=== PATIENT | female | born 2000 | race Caucasian/White ===

== ENCOUNTER 2024-10-01 11:12 | Inpatient (IN) ==
[2024-10-01] MEDS ORDERED: OXYTOCIN 30 UNITS/NSS 30 UNITS/500 ML BAG IV PRN (13:52)
[2024-10-01] MEDS ORDERED: LIDOCAINE 1% LOCAL 20 ML VIAL INFIL PRN (13:52)
--- NOTE | 2024-10-01 13:58 | History & Physical Report ---
Date of Service October 01, 2024 Assessment & Plan (1) Encounter for supervision of normal intrauterine in primigravida, antepartum: Plan: Melissa is a 23-year-old G1, P0 currently at 39 weeks 2 days gestational age presents in early labor 1. Fetus: Category 1 tracing 2. Labor: Progressing spontaneously. Will rupture following epidural. Will augment as indicated 3. GBS negative 4. Vitals within normal limit (2) Normal labor: History of Present Illness Primary Care Provider: Calvin Lopez DO Melissa is a 23-year-old G1, P0 currently at 39 weeks 2 days gestational age presents in early labor. complications: Suspected VSD - echo-[facility] – [place]- 05/28/24 - to have non urgent echo post delivery OB Labs: Blood Type O Positive 02/29/24 Antibody Screen NEGATIVE 02/29/24 Hgb 13.0 g/dl (12.0-16.0) 07/17/24 Hct 38.4 % (37.0-47.0) 07/17/24 MCV 83.9 fL (80.0-100.0) 02/29/24 Plt Count 231 K/uL (130-400) 02/29/24 Rubella IgG Antibody Immune (Immune) 02/29/24 RPR Nonreactive (Nonreactive) 02/29/24 Treponema pallidum Ab Negative (Negative) 07/17/24 Hep Bs Antigen NON-REACTIVE (NON-REACTIVE) 02/29/24 Hepatitis C Ab (EIA) NON-REACTIVE (NON-REACTIVE) 02/29/24 HIV (1&2) Ag & Ab Conf NON-REACTIVE (NON-REACTIVE) 02/29/24 Glucose 1 Hr 50 gm 158 mg/dl (70-130) H 04/24/24 Maternal Serum AFP 34.0 ng/mL 04/24/24 OB Optional Labs: Chlamydia trachomatis RNA Not Detected (NotDetected) 02/29/24 Neisseria gonorrhoeae RNA Not Detected (NotDetected) 02/29/24 Thyroid Stimulating Hormone (TSH) 2.562 uIu/ml (0.300-4.500) 02/10/22 Alpha Fetoprotein Triple Screen SEE NOTE 04/24/24 Labs Reviewed: cf/sma-negative--mln cfdna-low risk--mln afp neg--akh passed 16 week 2 hr gtt--akh Allergies Allergy/AdvReac Type Severity Reaction Status Date / Time ibuprofen [From Motrin] Allergy Unknown Swelling Verified 09/30/24 03:16 of the Eye naproxen Allergy Unknown Swelling Verified 09/30/24 03:16 of the Eye Home Medications Medication Instructions Recorded Confirmed Type [id number] fum-folic ac-om3 1 tab PO DAILY 02/05/24 10/01/24 History [One Daily ] famotidine 40 mg tablet (Pepcid) 40 mg PO DAILY #90 tabs 02/07/24 10/01/24 Rx Patient History Medical History (Updated 10/01/24 @ 13:57 by Gume Rosen MD) Normal labor Varicella vaccination 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 Cellulitis of left breast Tachycardia Sinusitis Lightheadedness Lumbar pain Surgical History History of lumpectomy of left breast Family History Grandfather (Maternal) Pancreatic cancer Grandmother (Paternal) Diabetes Dyslipidemia Grandfather (Paternal) Diabetes Dyslipidemia Mother Hypertension Father Hypertension Denies family history of Ovarian cancer Myocardial infarction Breast cancer Colorectal cancer Social History Smoking Status: Never smoker Second Hand Exposure: No; Do You Dip or Chew Tobacco: No; Tobacco Cessation Education Requested by Patient: No Hx Alcohol Use: No Hx Substance Use: No Preferred Language: Greek Communication Ability: Effective Addictions Therapist Required: No Beliefs That Will Affect Care: None marital status: marital status details: Martell Pettit (31) [phone] Current Living Situation: Spouse Current Living Situation Comment: - Martell current occupational status: employed 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 Other Information That Helps Us Care for You: No Feels Safe at Home: Yes Safety Concerns: Feels Safe At This Time Assistive Devices: None Physical Exam Genitourinary: OB Exam Monitor Tracing: + external FHT monitor used, + external uterine monitor used, + category I and + normal FHT variability Progressed from 2/80/-2 to 3/80/-2 Results & Data Vital Signs (Past 12 Hours) Vital Signs Temp Pulse Resp BP 10/01/24 11:20 36.6 C 101 H 20 137/94 10/01/24 11:16 101 H 137/94 Coding Level of Care Code None Diagnoses Encounter for supervision of normal intrauterine in primigravida, antepartum Z34.00 Normal labor O80; Z37.9
[2024-10-01 14:32] LABS: Hematocrit (blood only) 40.4 % (37.0-47.0); Mean Corpuscular Hemoglobin 29.7 pg (25.0-34.0); Mean Corpuscular Hgb Conc 34.7 g/dL (32.0-36.0); Mean Corpuscular Volume 85.8 fL (80.0-100.0); Mean Platelet Volume 11.4 fL (9.4-12.4); Platelet Count 176 K/uL (130-400); RDW Coefficient of Variation 13.4 % (11.5-14.5); RDW Standard Deviation 41.4 fL (36.4-46.3); Red Blood Count 4.71 M/uL (4.20-5.40); White Blood Count 11.23 K/ul (4.8-10.8)
[2024-10-01] MEDS: SODIUM CHLORIDE 0.9% 1,000 ML IV SCH (14:42)
--- NOTE | 2024-10-01 15:12 | Anesthesiology Consultation ---
Date of Service October 01, 2024 Assessment & Plan Chart Review Chart Review: Acceptable Risk for Surgery and Patient NOT seen in Pre Admission Testing Consults Requested none History Height/Weight Height: 5 ft 7 in Weight: 94.801 kg Allergies Allergy/AdvReac Type Severity Reaction Status Date / Time ibuprofen [From Motrin] Allergy Unknown Swelling Verified 09/30/24 03:16 of the Eye naproxen Allergy Unknown Swelling Verified 09/30/24 03:16 of the Eye Medications Home Medications Medication Instructions Recorded Confirmed Last Taken [id number] fum-folic ac-om3 1 tab PO DAILY 02/05/24 10/01/24 10/01/24 08:00 [One Daily ] famotidine 40 mg tablet (Pepcid) 40 mg PO DAILY #90 tabs 02/07/24 10/01/24 10/01/24 08:00 Active Medications Generic Name Dose Route Start Last Admin Trade Name Freq PRN Reason Stop Dose Admin Sodium Chloride 1,000 mls @ 80 mls/hr 10/01/24 14:30 10/01/24 14:42 Nss IV 10/02/24 14:29 999 mls/hr .[id number] JULIAN Administration Past Medical History Medical History (Updated 10/01/24 @ 13:57 by Gume Rosen MD) Normal labor Varicella vaccination 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 Cellulitis of left breast Tachycardia Sinusitis Lightheadedness Lumbar pain Past Family History Family History Grandfather (Maternal) Pancreatic cancer Grandmother (Paternal) Diabetes Dyslipidemia Grandfather (Paternal) Diabetes Dyslipidemia Mother Hypertension Father Hypertension Denies family history of Ovarian cancer Myocardial infarction Breast cancer Colorectal cancer Past Surgical History Surgical History History of lumpectomy of left breast Social History Smoking Status: Never smoker Do You Dip or Chew Tobacco: No Hx Alcohol Use: No Hx Substance Use: No Physical Exam Vital Signs Last Vital Signs Temp 36.6 C 10/01/24 11:20 Pulse 91 H 10/01/24 15:08 Resp 20 10/01/24 11:20 BP 133/90 10/01/24 14:02 Pulse Ox 98 10/01/24 15:08 Testing Laboratory Results 10/01/24 14:16
[2024-10-01] MEDS ORDERED: BUPIVACAINE 0.25% PF 30 ML VIAL EPI PRN (15:13)
[2024-10-01] MEDS ORDERED: LIDOCAINE 2% MPF LOCAL 5 ML VIAL EPI PRN (15:13)
[2024-10-01] MEDS ORDERED: ePHEDrine sulfate 50 MG/ML AMP IV PRN (15:13)
[2024-10-01] MEDS ORDERED: fentaNYL citrate PF 100 MCG/2 ML VIAL EPI PRN (15:13)
[2024-10-01] MEDS ORDERED: SODIUM CHLORIDE 0.9% PF INJ 10 ML VIAL EPI PRN (15:13)
[2024-10-01] MEDS ORDERED: NALBUPHINE HCL INJ 10 MG/ML AMP IV PRN (15:13)
[2024-10-01] MEDS ORDERED: ROPIVACAINE 0.5% PF 5 MG/ML 20 ML VIAL EPI PRN (15:13)
[2024-10-01] MEDS ORDERED: NALOXONE HCL 1 MG in SODIUM CHLORIDE 0.9% 1,000 ML IV PRN (15:13)
[2024-10-01] MEDS ORDERED: diphenhydrAMINE 50 MG/ML VIAL IV PRN (15:13)
[2024-10-01] MEDS ORDERED: NALOXONE HCL 0.4 MG/1 ML VIAL/CARP IV PRN (15:13)
[2024-10-01] MEDS: LIDOCAINE 2%/EPINEPHRINE 1:200,000 20 ML PF ONE (15:30)
[2024-10-01] MEDS: fentANYL 2 MCG/ML BUPIVacaine 0.125%-NSS 100ML BAG ONE (15:30)
[2024-10-01] MEDS: BUPIVACAINE 0.25% PF 30 ML VIAL EPI STA (17:17)
[2024-10-01] MEDS: SODIUM CHLORIDE 0.9% PF INJ 10 ML VIAL EPI STA (17:18)
[2024-10-01] MEDS: fentaNYL citrate PF 100 MCG/2 ML VIAL EPI STA (17:18)
[2024-10-01] MEDS: fentaNYL citrate PF 100 MCG/2 ML VIAL ONE (20:05)
[2024-10-01] MEDS: ePHEDrine sulfate 50 MG/ML AMP ONE (20:05)
[2024-10-01] MEDS: LIDOCAINE 2%/EPINEPHRINE 1:200,000 20 ML PF EPI STA (20:05)
[2024-10-01] MEDS: BUPIVACAINE 0.25% PF 30 ML VIAL ONE (20:05)
[2024-10-01] MEDS: SODIUM CHLORIDE 0.9% PF INJ 10 ML VIAL ONE (20:05)
[2024-10-01] MEDS: OXYTOCIN 30 UNITS/NSS 30 UNITS/500 ML BAG IV PRN (20:23)
--- NOTE | 2024-10-01 21:35 | Labor Progress Brief Note ---
Date of Service October 01, 2024 Subjective Reason For Note: Routine Evaluation Assessment & Plan (1) Encounter for supervision of normal intrauterine in primigravida, antepartum: Plan: Melissa is a 23-year-old G1, P0 currently at 39 weeks 2 days gestational age presents in early labor 1. Fetus: Category 1 tracing 2. Labor: Progressing spontaneously. Will rupture following epidural. Oxytocin started as contractions have significantly spaced out 3. GBS negative 4. Vitals within normal limit (2) Normal labor: Admission and Anticipated Discharge Date Admission Date: October 01, 2024 Physical Exam Genitourinary: Manual OB Exam: + cervical dilation 6 cm, + cervical effacement 80%, + station -1 and + amniotic fluid clear OB Exam Monitor Tracing: + external FHT monitor used, + external uterine monitor used, + category I and + normal FHT variability Results & Data Vital Signs (Past 12 Hours) Vital Signs Temp Pulse Resp BP Pulse Ox 10/01/24 21:33 99 10/01/24 21:33 75 10/01/24 21:28 99 10/01/24 21:28 73 10/01/24 21:26 83 10/01/24 21:26 105/66 10/01/24 21:23 99 10/01/24 21:23 76 10/01/24 21:18 99 10/01/24 21:18 74 10/01/24 21:13 99 10/01/24 21:13 82 10/01/24 21:11 69 10/01/24 21:11 101/59 L 10/01/24 21:08 98 10/01/24 21:08 74 10/01/24 21:03 99 10/01/24 21:03 70 10/01/24 21:00 18 10/01/24 21:00 37.0 C 18 10/01/24 20:58 98 10/01/24 20:58 100 H 10/01/24 20:57 83 10/01/24 20:57 117/75 10/01/24 20:53 98 10/01/24 20:53 90 10/01/24 20:48 99 10/01/24 20:48 89 10/01/24 20:43 98 10/01/24 20:43 88 10/01/24 20:41 81 10/01/24 20:41 118/82 10/01/24 20:38 98 10/01/24 20:38 84 10/01/24 20:33 98 10/01/24 20:33 85 10/01/24 20:28 98 10/01/24 20:28 82 10/01/24 20:26 78 10/01/24 20:26 115/88 10/01/24 20:23 98 10/01/24 20:23 85 10/01/24 20:18 97 10/01/24 20:18 83 10/01/24 20:13 97 10/01/24 20:13 83 10/01/24 20:11 78 10/01/24 20:11 119/77 10/01/24 20:08 98 10/01/24 20:08 96 H 10/01/24 20:03 99 10/01/24 20:03 89 10/01/24 19:58 98 10/01/24 19:58 96 H 10/01/24 19:58 119/83 10/01/24 19:53 98 10/01/24 19:53 83 10/01/24 19:48 97 10/01/24 19:48 87 10/01/24 19:43 98 10/01/24 19:43 85 10/01/24 19:42 88 10/01/24 19:42 130/81 10/01/24 19:38 99 10/01/24 19:38 82 10/01/24 19:33 99 10/01/24 19:33 82 10/01/24 19:28 99 10/01/24 19:28 88 10/01/24 19:26 83 10/01/24 19:26 104/70 10/01/24 19:23 99 10/01/24 19:23 90 10/01/24 19:18 98 10/01/24 19:18 89 10/01/24 19:13 99 10/01/24 19:13 68 10/01/24 19:13 104/66 10/01/24 19:10 36.6 C 18 10/01/24 19:10 18 10/01/24 19:10 36.6 C 18 10/01/24 19:08 99 10/01/24 19:08 82 10/01/24 19:03 98 10/01/24 19:03 85 10/01/24 19:00 16 12/10/24 19:00 16 10/01/24 18:58 99 10/01/24 18:58 111 H 10/01/24 18:56 90 10/01/24 18:56 129/81 10/01/24 18:53 98 10/01/24 18:53 96 H 10/01/24 18:48 98 10/01/24 18:48 83 10/01/24 18:43 99 10/01/24 18:43 98 H 10/01/24 18:42 78 10/01/24 18:42 121/78 10/01/24 18:38 99 10/01/24 18:38 91 H 10/01/24 18:33 99 10/01/24 18:33 96 H 10/01/24 18:30 16 10/01/24 18:30 16 10/01/24 18:28 99 10/01/24 18:28 89 10/01/24 18:26 80 10/01/24 18:26 123/81 10/01/24 18:23 99 10/01/24 18:23 89 10/01/24 18:18 99 10/01/24 18:18 91 H 10/01/24 18:13 99 10/01/24 18:13 81 10/01/24 18:12 74 10/01/24 18:12 120/77 10/01/24 18:08 99 10/01/24 18:08 74 10/01/24 18:03 99 10/01/24 18:03 86 10/01/24 18:00 16 10/01/24 18:00 36.9 C 16 10/01/24 17:58 100 10/01/24 17:58 70 10/01/24 17:56 64 10/01/24 17:56 110/70 10/01/24 17:53 100 10/01/24 17:53 82 10/01/24 17:48 99 10/01/24 17:48 57 L 10/01/24 17:43 99 10/01/24 17:43 72 10/01/24 17:41 74 10/01/24 17:41 100/62 10/01/24 17:38 99 10/01/24 17:38 58 L 10/01/24 17:33 98 10/01/24 17:33 82 10/01/24 17:30 16 10/01/24 17:30 16 10/01/24 17:28 99 10/01/24 17:28 65 10/01/24 17:26 63 10/01/24 17:26 106/64 10/01/24 17:23 99 10/01/24 17:23 65 10/01/24 17:18 98 10/01/24 17:18 53 L 10/01/24 17:13 99 10/01/24 17:13 71 10/01/24 17:11 59 L 10/01/24 17:11 98/57 L 10/01/24 17:08 99 10/01/24 17:08 73 10/01/24 17:03 99 10/01/24 17:03 56 L 10/01/24 17:00 18 10/01/24 17:00 18 10/01/24 16:58 99 10/01/24 16:58 62 10/01/24 16:57 56 L 10/01/24 16:57 109/57 L 10/01/24 16:53 99 10/01/24 16:53 88 10/01/24 16:48 99 10/01/24 16:48 68 10/01/24 16:43 98 10/01/24 16:43 71 10/01/24 16:41 66 10/01/24 16:41 105/67 10/01/24 16:38 97 10/01/24 16:38 76 10/01/24 16:34 93 10/01/24 16:34 62 10/01/24 16:33 100 10/01/24 16:33 75 10/01/24 16:28 98 10/01/24 16:28 77 10/01/24 16:26 76 10/01/24 16:26 106/66 10/01/24 16:23 99 10/01/24 16:23 84 10/01/24 16:18 99 10/01/24 16:18 85 10/01/24 16:13 98 10/01/24 16:13 88 10/01/24 16:11 75 10/01/24 16:11 113/70 10/01/24 16:08 99 10/01/24 16:08 73 10/01/24 16:05 16 10/01/24 16:05 37.1 C 16 10/01/24 16:03 99 10/01/24 16:03 80 10/01/24 16:00 16 10/01/24 16:00 16 10/01/24 15:58 99 10/01/24 15:58 73 10/01/24 15:57 71 10/01/24 15:57 115/70 10/01/24 15:53 99 10/01/24 15:53 74 10/01/24 15:48 98 10/01/24 15:48 81 10/01/24 15:43 99 10/01/24 15:43 70 10/01/24 15:38 80 10/01/24 15:38 122/75 10/01/24 15:38 99 10/01/24 15:38 79 10/01/24 15:36 16 10/01/24 15:36 16 10/01/24 15:36 86 10/01/24 15:36 125/73 10/01/24 15:34 93 H 10/01/24 15:34 134/82 10/01/24 15:33 98 10/01/24 15:33 99 H 10/01/24 15:32 16 10/01/24 15:32 16 10/01/24 15:32 110 H 10/01/24 15:32 131/78 10/01/24 15:30 90 10/01/24 15:30 119/74 10/01/24 15:28 16 10/01/24 15:28 16 10/01/24 15:28 99 10/01/24 15:28 90 10/01/24 15:28 129/86 10/01/24 15:26 139/95 10/01/24 15:24 96 H 10/01/24 15:24 139/100 10/01/24 15:23 98 10/01/24 15:23 90 10/01/24 15:18 99 10/01/24 15:18 89 10/01/24 15:13 98 10/01/24 15:13 103 H 10/01/24 15:08 98 10/01/24 15:08 91 H 10/01/24 15:03 99 10/01/24 15:03 90 10/01/24 14:58 99 10/01/24 14:58 83 10/01/24 14:53 99 10/01/24 14:53 94 H 10/01/24 14:48 99 10/01/24 14:48 89 10/01/24 14:43 99 10/01/24 14:43 88 10/01/24 14:38 99 10/01/24 14:38 90 10/01/24 14:33 99 10/01/24 14:33 87 10/01/24 14:02 74 10/01/24 14:02 133/90 10/01/24 11:20 36.6 C 101 H 20 137/94 10/01/24 11:16 101 H 137/94 Coding Level of Care Code None Diagnoses Encounter for supervision of normal intrauterine in primigravida, antepartum Z34.00 Normal labor O80; Z37.9
[2024-10-01] MEDS: fentANYL 2 MCG/ML BUPIVacaine 0.125%-NSS 100ML BAG EPI PRN (23:41)
[2024-10-02] MEDS ORDERED: OXYTOCIN 30 UNITS/NSS 30 UNITS/500 ML BAG IV PRN (01:29)
[2024-10-02] MEDS ORDERED: bisacodyL 10 MG SUPP PR PRN (01:29)
[2024-10-02] MEDS ORDERED: IBUPROFEN 600 MG TAB PO PRN (01:29)
[2024-10-02] MEDS ORDERED: HYDROCORTISONE ACETATE 25 MG SUPP PR PRN (01:29)
--- NOTE | 2024-10-02 01:30 | Delivery Summary ---
Vaginal Delivery Summary Date of Service October 02, 2024 Vaginal Delivery Summary and 2nd Degree LAC Progressed to 10 cm dilated, 100% effaced, +2/3 station pushed over intact perineum with epidural anesthesia and delivered a viable female with weight pending and Apgars of 8 and 9 at 1 and 5 minutes respectively. Head and delivered without difficulty quickly followed by shoulders and body. was noted to be vigorous upon delivery and a 1 minute delayed cord clamping was initiated. Cord was then double clamped and cut remained on maternal abdomen. Cord blood obtained and attention was turned to delivery of the placenta which delivered intact with three-vessel cord gentle cord traction. On inspection of perineum vagina and cervix there is noted be a second-degree perineal laceration which was repaired with 3-0 Vicryl traditional crown stitch. Needle sponge and instrument counts correct at the completion of the case. Both mother and stable in the immediate post delivery timeframe. No complications noted and blood loss per QBL. [facility] Vaginal Delivery Charge Delivery Type Details: and 2nd Degree LAC
[2024-10-02] MEDS: DIPHTHER/TETAN/PERTUS Vaccine (Tdap, Adol/Adult) 0.5mL IM ONE (02:15)
[2024-10-02] MEDS: BENZOCAINE 20% SPRY 85 APPLN/85 GM CAN EXT PRN (02:57)
[2024-10-02] MEDS: ACETAMINOPHEN 325 MG TAB PO PRN (02:57)
--- NOTE | 2024-10-02 03:05 | Anesthesia Procedure Note ---
Date of Service October 02, 2024 Anesthesia Post Epidural Note Vital Signs Vital Signs: Temp Pulse Resp BP Pulse Ox 36.7 C 98 H 18 129/68 97 10/02/24 02:25 10/02/24 02:56 10/02/24 02:25 10/02/24 02:56 10/02/24 01:58 Notes Mental Status: alert / awake / arousable and participated in evaluation Nausea / Vomiting: adequately controlled Pain: adequately controlled Airway Patency, RR, SpO2: stable & adequate BP & HR: stable & adequate Hydration State: stable & adequate Neuraxial Anesthesia: was administered and sensory block is resolving Anesthetic Complications: no major complications apparent and Pt Satisfied with anesthetic care Epidural: Removed without complications and With tip intact
[2024-10-02] MEDS ORDERED: Nursing to Pharmacy Communication SCH (08:30)
[2024-10-02] MEDS: DOCUSATE SODIUM 100 MG CAP PO SCH (08:59)
[2024-10-02] MEDS: PRENATAL VITAMIN 1 TAB PO SCH (08:59)
[2024-10-02] MEDS: FERROUS SULFATE 325 MG TAB PO SCH (08:59)
--- NOTE | 2024-10-03 06:50 | Obstetrical Progress Note ---
Date of Service October 03, 2024 Assessment & Plan (1) Encounter for assessment: Plan Plan d/c later today. Meeting goals. Instructions given. f/u in 6 weeks. Day #:: 2 Subjective Ambulation: ambulating normally Voiding: no voiding problems Passing Gas:: Yes Diet Tolerance:: regular diet Lochia:: Small Feeding Type:: breast feeding Feels well. Ready for d/c. Physical Exam Constitutional WD/WN, vitals as above Cardiovascular Extremities: + edema (tr); no calf tenderness Gastrointestinal (Abdomen) soft, nt, nd, ff/nt 1 below u Psychiatric A+Ox3, euthymic affect Results & Data Vital Signs (Past 12 Hours) Vital Signs Temp Pulse Resp BP Pulse Ox O2 Del Method 10/02/24 23:00 36.4 C L 81 16 119/81 97 Room Air 10/02/24 19:20 36.6 C 91 H 16 128/83 97 Room Air
[2024-10-03] MEDS ORDERED: bisacodyL 5 MG TABEC PO SCH (20:00)
[2024-10-03 20:18] VITALS: RESP 16
--- NOTE | 2024-10-04 06:56 | Obstetrical Progress Note ---
Date of Service October 04, 2024 Assessment & Plan (1) Encounter for assessment: Patient doing well. Minimal bleeding, no extremity pain she has no calf tenderness she is tolerating a regular diet she is voiding well she has no depression Instructions are reviewed and when to call she is advised to call the office for a follow-up appointment and sooner if she is having a problem Subjective Ambulation: ambulating normally Voiding: no voiding problems Passing Gas:: Yes Diet Tolerance:: regular diet Lochia:: Small Physical Exam Constitutional WD/WN, vitals as above well developed and well nourished Respiratory normal respiratory effort, lungs clear to auscultation normal respiratory effort Cardiovascular RRR, no murmur, no edema Gastrointestinal (Abdomen) normal bowel sounds, soft, nontender, no hepatosplenomegaly Results & Data Vital Signs (Past 12 Hours) Vital Signs Temp Pulse Resp BP Pulse Ox O2 Del Method 10/03/24 23:50 97.3 F L 82 16 126/85 97 Room Air 10/03/24 19:00 97.5 F L 86 16 130/86 98 Room Air
[2024-10-04 08:28] VITALS: BP 130/92; TEMP 97.7; O2SAT 98
[2024-10-04 08:32] VITALS: PULSE 98
== END 2024-10-04 11:30 | disposition home or self-care (01) | DRG 807 ==
LOC: OPB 11:12 → 4S1 11:14 → 4E2 10-02 04:17